=== PATIENT | female | born 1995 | race Caucasian/White ===

== ENCOUNTER 2018-03-08 12:15 | Inpatient (IN) | payer BC, SELFPAY ==
[2016-02-16 12:01] VITALS: BMI 35.2
[2018-03-08] VITALS (15 sets, daily range): BP systolic 92–123; BP diastolic 1–74; PULSE 68–104; RESP 16–18; TEMP 35.8–37.2; O2SAT 96–100; BMI 36.8
[2018-03-08 11:40] LABS: ROM Internal Control Test YES-OK TO RESULT pt. (Internal QC)
[2018-03-08 12:08] LABS: ROM Patient Test POSITIVE (Negative)
[2018-03-08] MEDS: Lactated Ringers 1,000 ML 150 ML IV (13:25)
[2018-03-08 13:36] LABS: Absolute Lymphocyte Count 2.82 X10^3/ul (0.83-4.51); Absolute Neutrophil Count 7.9 X10^3/uL (2.0-7.7); Basophil# 0.02 X10^3/uL; Basophil% 0.2 % (0-1); Eosinophil# 0.16 X10^3/uL; Eosinophils% 1.4 % (0-5); Hematocrit 35.1 % (37-47); Hemoglobin 11.7 g/dl (12.0-15.0); Lymphocyte # 2.82 X10^3/ul (4.0); Lymphocyte % 24.4 % (19-41); Mean Corp Hgb Conc 33.3 g/gl (32-36); Mean Corpuscular Hgb 29.8 pg (27.0-32.0); Mean Corpuscular Volume 89.5 fL (81-99); Monocyte# 0.57 X10^3/uL; Monocyte% 4.9 % (0-10); Neutrophil # 7.93 X10^3/uL (2.7-7.7); Neutrophil % 68.8 % (47-70); Platelet Count 208 K/mm3 (150-450); RBC Distribution Width CV 12.6 % (11.6-14.6); RBC Distribution Width SD 40.2 fl (35.1-43.9); Red Blood Count 3.92 M/mm3 (4.2-5.4); White Blood Count 11.5 K/mm3 (4.4-11.0)
[2018-03-08 13:37] LABS: POSITIVE COUNT NO; POSITIVE DIFFERENTIAL NO; POSITIVE MORPHOLOGY NO
[2018-03-08] MEDS: Sodium Citrate/Citric Acid 30 ML UDC PO (14:48)
[2018-03-08] MEDS: Cefazolin 2 GM in 0.9% Normal Saline 100 ML IV (14:50)
[2018-03-08] MEDS: Lactated Ringers 1,000 ML 999 ML IV (14:51)
[2018-03-08] MEDS: Oxytocin 30 units/NS 500 ml 30 UNITS/500 ML IV.SOLN 167 UNITS IV (15:24)
--- NOTE | 2018-03-08 15:50 | PCM.HP.OB ---
History Date of Admission: 03/08/18 Final TERESA: 03/06/18 Final TERESA Source: LMP Gestational age: 40 Weeks and 2 Days History of this : This is a 22 year-old, at 40.2 weeks gestational age c/o SROM at 7am on 03/08/18. Allergies benzocaine Allergy (Verified 03/08/18 11:23) Swelling Home Medications: Home Medications Vits [Prenatabs FA ] 1 tablet PO DAILY 02/14/16 Smoking Status: Never smoker Alcohol: None Number of Fetus(es): 1 History Past Pregnancies: Past Pregnancies Delivery Date Name GA/Weeks Outcome Route Weight Infant Gender Labor Length Anesthesia Delivery Location Provider FOB Labs: A+, HIV neg, HEP B neg, rub imm, Syphilis neg Expected Infant Delivery Method: Spontaneous Vaginal Review of Systems Constitutional: Denies: Anorexia Cardiovascular: Denies: Chest Pain Gastrointestinal: Denies: Abdominal Pain Physical Exam General: Alert, Oriented x3 Abdomen: Soft, Non Tender, Gravid Neurological: Cranial nerves II-XII grossly intact CODING SUPPORT SPECIALIST: Normal external genitalia Estimated gestational size: Appropriate for gestational size Presentation: Cephalic Cervix Dilation (cm): 0 Station: -3 Effacement (%): 0 Assessment/Plan This is a 22 year-old, G 2P1 at 40.2 weeks gestational age- SROM at home- remote from delivery- Previous C/S 1) discussed with patient that at this time she is not in labor, cervix is not favorable and IOL could be prolonged - with h/o chorioamnionitis i recommend Repeat c/s at this- I counseled patient and who agreed to proceed 2) Repeat cs today 3) PRe OP ANCEF ordered 4) OR team notified
--- NOTE | 2018-03-08 15:55 | HP.PCM_ITS ---
History Date of Admission: 03/08/18 Final TERESA: 03/06/18 Final TERESA Source: LMP Gestational age: 40 Weeks and 2 Days History of this : This is a 22 year-old, at 40.2 weeks gestational age c/o SROM at 7am on 03/08/18. Allergies benzocaine Allergy (Verified 03/08/18 11:23) Swelling Home Medications: Home Medications Vits [Prenatabs FA ] 1 tablet PO DAILY 02/14/16 Smoking Status: Never smoker Alcohol: None Number of Fetus(es): 1 History Past Pregnancies: Past Pregnancies Delivery Date Name GA/Weeks Outcome Route Weight Infant Gender Labor Length Anesthesia Delivery Location Provider FOB Labs: A+, HIV neg, HEP B neg, rub imm, Syphilis neg Expected Infant Delivery Method: Spontaneous Vaginal Review of Systems Constitutional: Denies: Anorexia Cardiovascular: Denies: Chest Pain Gastrointestinal: Denies: Abdominal Pain Physical Exam General: Alert, Oriented x3 Abdomen: Soft, Non Tender, Gravid Neurological: Cranial nerves II-XII grossly intact SUBSTATION INSPECTOR: Normal external genitalia Estimated gestational size: Appropriate for gestational size Presentation: Cephalic Cervix Dilation (cm): 0 Station: -3 Effacement (%): 0 Assessment/Plan This is a 22 year-old, G 2P1 at 40.2 weeks gestational age- SROM at home- remote from delivery- Previous C/S 1) discussed with patient that at this time she is not in labor, cervix is not favorable and IOL could be prolonged - with h/o chorioamnionitis i recommend Repeat c/s at this- I counseled patient and who agreed to proceed 2) Repeat cs today 3) PRe OP ANCEF ordered 4) OR team notified
--- NOTE | 2018-03-08 15:59 | PCM.IMED.CSR ---
A-[id number]-Kjzjgz[facility] PostOp Date of Procedure: 03/08/18 Primary Surgeon/Physician: Radha Kirk MD supervisor packing room: Carrillo Bergman Pre-op Diagnosis: Repeat Elective , - - PROM - not in labor remote from delivery Post-Op Diagnosis: Repeat Elective , - - PROM, Not in labor remote from delivery Surgery/Procedure Performed: Repeat low transverse Section Description of Surgical Findings:: After informed consent was obtained the patient was taken to the operating room she was given spinal anesthesia. sHe was placed in the supine position. She was then prepped and draped in normal sterile fashion. Once spinal anesthesia was found to be adequate skin incision was made with a scalpel in a Pfannenstiel fashion. It was carried down to the underlying layer of the fascia. Fascia was then incised midline with scapel and extended laterally using curved reyna. 2 straight Lester's were placed in the superior aspect of the fascial edge and the rectus muscles were dissected off sharply. Attention was then turned to the inferior aspect where again the fascial edge was grasped with 2 straight Cassy clamps tented up and the rectus muscle dissected off sharply. At this time the rectus muscles were grasped in the midline using 2 Allis clamps and scalpel was used to separate the rectus muscles. Using blunt force the peritoneum was then entered. Metzenbaums were used to take down the rectus muscles inferiorly as well as the peritoneum. At this time the vesicouterine peritoneum was identified. Metzenbaum scissors were used to create a bladder flap and then taken down digitally. Uterine incision was made in a low transverse fashion with the scalpel and then entered bluntly. Gentle opposing traction was placed to extend the uterine incision. The membranes were ruptured amniotic fluid meconium stained. Infant's head was then brought to the uterine incision was delivered atraumatically followed by the rest infant's body. At this time delayed cord clamping was performed mouth nose were suctioned. Infant was then handed to the waiting nursery team. The placenta was then removed with gentle traction. The uterus was removed from the intra-abdominal cavity is wrapped in a moist lap. He was cleared of all clots and debris using a moist lap. Ring clamps were placed on the uterine angles. #1 Vicryl suture was used in a running locked fashion for the first layer. Multiple figure of eight sutures placed for hemostasis using #1 vicryl. At this time then the uterus was placed back into abdominal cavity uterine incision was evaluated and noted to be of good hemostasis. Great hemostasis was appreciated at this time the uterine incision was again evaluated good hemostasis was appreciated. Guera placed. The peritoneum was grasped with Kellys. Peritoneum was reapproximated using #2 Vicryl suture in a running fashion. Muscle was then reapproximated using #2 Vicryl in an interrupted mattress suture fashion. The fascia was then reapproximated using #1 Vicryl in a running fashion. Subcutaneous layer was evaluated and Bovie was used for any small oozing that was noted per #2-0 plain gut suture was then used to reapproximate the subcutaneous layer - follow by guera. 4-0 Vicryl on a Dave needle was used to reapproximate the skin in a subcutaneous fashion. Dry sterile dressing was applied. Instrument lap needle count were correct ?2. Anticipated normal postoperative course for this patient. Estimated Blood Loss: 750 Specimens Removed: placenta Drain: Landry to straight drain Type of Anesthesia: Spinal - Admit VTE Documentation VTE Present on Admission: Yes VTE Mechan Device Prophylaxis: SCD's VTE Pharm Prophylaxis ordered?: Yes
[2018-03-08] MEDS: Lactated Ringers 1,000 ML 100 ML IV (16:00)
--- NOTE | 2018-03-08 16:03 | OP.PN_ITS ---
K-Fuprcmp-Wzjlzdrtj PostOp Date of Procedure: 03/08/18 Primary Surgeon/Physician: Radha Kirk MD vision mixer: Carrillo Bergman Pre-op Diagnosis: Repeat Elective , - - PROM - not in labor remote from delivery Post-Op Diagnosis: Repeat Elective , - - PROM, Not in labor remote from delivery Surgery/Procedure Performed: Repeat low transverse Section Description of Surgical Findings:: After informed consent was obtained the patient was taken to the operating room she was given spinal anesthesia. sHe was placed in the supine position. She was then prepped and draped in normal sterile fashion. Once spinal anesthesia was found to be adequate skin incision was made with a scalpel in a Pfannenstiel fashion. It was carried down to the underlying layer of the fascia. Fascia was then incised midline with scapel and extended laterally using curved reyna. 2 straight Richland's were placed in the superior aspect of the fascial edge and the rectus muscles were dissected off sharply. Attention was then turned to the inferior aspect where again the fascial edge was grasped with 2 straight Cassy clamps tented up and the rectus muscle dissected off sharply. At this time the rectus muscles were grasped in the midline using 2 Allis clamps and scalpel was used to separate the rectus muscles. Using blunt force the peritoneum was then entered. Metzenbaums were used to take down the rectus muscles inferiorly as well as the peritoneum. At this time the vesicouterine peritoneum was identified. Metzenbaum scissors were used to create a bladder flap and then taken down digitally. Uterine incision was made in a low transverse fashion with the scalpel and then entered bluntly. Gentle opposing traction was placed to extend the uterine incision. The membranes were ruptured amniotic fluid meconium stained. Infant's head was then brought to the uterine incision was delivered atraumatically followed by the rest infant's body. At this time del ayed cord clamping was performed mouth nose were suctioned. was then handed to the waiting nursery team. The placenta was then removed with gentle traction. The uterus was removed from the intra-abdominal cavity is wrapped in a moist lap. He was cleared of all clots and debris using a moist lap. Ring clamps were placed on the uterine angles. #1 Vicryl suture was used in a running locked fashion for the first layer. Multiple figure of eight sutures placed for hemostasis using #1 vicryl. At this time then the uterus was placed back into abdominal cavity uterine incision was evaluated and noted to be of good hemostasis. Great hemostasis was appreciated at this time the uterine incision was again evaluated good hemostasis was appreciated. Guera placed. The peritoneum was grasped with Kellys. Peritoneum was reapproximated using #2 Vicryl suture in a running fashion. Muscle was then reapproximated using #2 Vicryl in an interrupted mattress suture fashion. The fascia was then reapproximated using #1 Vicryl in a running fashion. Subcutaneous layer was evaluated and Bovie was used for any small oozing that was noted per #2-0 plain gut suture was then used to reapproximate the subcutaneous layer - follow by guera. 4-0 Vicryl on a Dave needle was used to reapproximate the skin in a subcutaneous fashion. Dry sterile dressing was applied. Instrument lap needle count were correct ?2. Anticipated normal postoperative course for this patient. Estimated Blood Loss: 750 Specimens Removed: placenta Drain: Landry to straight drain Type of Anesthesia: Spinal - Admit VTE Documentation VTE Present on Admission: Yes VTE Mechan Device Prophylaxis: SCD's VTE Pharm Prophylaxis ordered?: Yes
[2018-03-08] MEDS: Ketorolac 30 MG/ML Syringe IV (18:21)
[2018-03-09] VITALS (12 sets, daily range): BP systolic 104–129; BP diastolic 54–75; PULSE 71–91; RESP 16–18; TEMP 35.9–36.6; O2SAT 98–100
[2018-03-09] MEDS: 0.9% Saline Lock 10 ML Syringe IV ×3 (00:06→18:28)
[2018-03-09] MEDS: Ketorolac 30 MG/ML Syringe IV ×4 (00:06→18:27)
[2018-03-09] MEDS: Lactated Ringers 1,000 ML 100 ML IV (02:34)
[2018-03-09 05:17] LABS: Hemoglobin 9.5 g/dl (12.0-15.0); Mean Corp Hgb Conc 33.9 g/gl (32-36); Mean Corpuscular Hgb 30.7 pg (27.0-32.0); Mean Corpuscular Volume 90.6 fL (81-99); Mean Platelet Vol. 10.5 fl (6.2-12.0); Platelet Count 156 K/mm3 (150-450); RBC Distribution Width CV 12.3 % (11.6-14.6); RBC Distribution Width SD 38.9 fl (35.1-43.9); Red Blood Count 3.09 M/mm3 (4.2-5.4); White Blood Count 11.5 K/mm3 (4.4-11.0)
[2018-03-09 05:18] LABS: Scan Indicated on CBC? Y/N NO
[2018-03-09] MEDS: Enoxaparin 40 MG/0.4 ML Syringe SC (06:04)
--- NOTE | 2018-03-09 08:06 | PN.OBGYN_ITS ---
Subjective: pt seen at bedside, doing well. pt reports good pain control. naranjo in place. passing flatus. breast feeding. - Physical Exam General: Alert, Oriented x3 Abdomen: Soft, Non-Distended, - - fundus firm. incision site dry and intact Extremities: No Calf Tenderness Vital Signs Temp Pulse Resp BP Pulse Ox 98.5 F 76 18 112/63 98 03/08/18 23:05 03/09/18 06:08 03/09/18 06:08 03/09/18 04:51 03/09/18 06:08 Oxygen Delivery Method Room Air Weight: 91.3 kg Body Mass Index (BMI) 36.8 Intake and Output for Last 24 Hours 03/07/18 03/08/18 03/09/18 23:59 23:59 23:59 Intake Total 833 / 833 1100 / 1100 Output Total 550 / 550 800 / 800 Balance 283 / 283 300 / 300 Laboratory Tests Past 24 Hrs 03/08/18 03/08/18 03/08/18 11:30 13:25 13:25 WBC 11.5 H RBC 3.92 L Hgb 11.7 L Hct 35.1 L MCV 89.5 MCH 29.8 MCHC 33.3 RDW 12.6 RDW Differential 40.2 Plt Count 208 MPV 10.0 Immature Gran % (Auto) 0.300 Neut % (Auto) 68.8 Lymph % (Auto) 24.4 [place] % (Auto) 4.9 Eos % (Auto) 1.4 Baso % (Auto) 0.2 Absolute Neuts (auto) 7.9 H Absolute Lymphs (auto) 2.82 Total Counted Not Reportable Vag Amniotic Fld Detect POSITIVE H Blood Type A POSITIVE Antibody Screen NEGATIVE 03/09/18 04:55 WBC 11.5 H RBC 3.09 L Hgb 9.5 L Hct 28.0 L MCV 90.6 MCH 30.7 MCHC 33.9 RDW 12.3 RDW Differential 38.9 Plt Count 156 MPV 10.5 Immature Gran % (Auto) Neut % (Auto) Lymph % (Auto) [place] % (Auto) Eos % (Auto) Baso % (Auto) Absolute Neuts (auto) Absolute Lymphs (auto) Total Counted Vag Amniotic Fld Detect Blood Type Antibody Screen Medical Necessity - Tobacco Use Smoking Status: Never smoker Assessment/Plan POD#1, doing well routine care pain mgmt dc naranjo ambulation
[2018-03-09] MEDS: oxyCODONE 5 MG Tablet PO (20:47)
[2018-03-10] MEDS: Ketorolac 30 MG/ML Syringe IV ×3 (00:01→11:12)
[2018-03-10] MEDS: 0.9% Saline Lock 10 ML Syringe IV ×3 (00:01→11:13)
[2018-03-10 02:30] VITALS: BP 121/71; PULSE 100; RESP 16; TEMP 36.6; O2SAT 98
[2018-03-10] MEDS: Enoxaparin 40 MG/0.4 ML Syringe SC (06:11)
--- NOTE | 2018-03-10 08:12 | PCM.PN.OB ---
Subjective: pt seen at bedside, doing well. pt reports good pain control. lochia mild. Pt reports mild nausea. passing flatus. breast feeding well. - Physical Exam General: Alert, Oriented x3 Abdomen: Soft, Non-Distended, - - fundus firm Extremities: No Calf Tenderness Vital Signs Temp Pulse Resp BP Pulse Ox 97.8 F 100 16 121/71 H 98 03/10/18 02:30 03/10/18 02:30 03/10/18 02:30 03/10/18 02:30 03/10/18 02:30 Oxygen Delivery Method Room Air Weight: 91.3 kg Body Mass Index (BMI) 36.8 Intake and Output for Last 24 Hours 03/08/18 03/09/18 03/10/18 23:59 23:59 23:59 Intake Total 833 / 833 1700 / 1700 Output Total 550 / 550 2300 / 2300 Balance 283 / 283 -600 / -600 Medical Necessity - Tobacco Use Smoking Status: Never smoker Assessment/Plan POD#2, doing well routine care pain mgmt ambulation zofran or phenergan for nausea
--- NOTE | 2018-03-10 08:16 | DCINST_ITS ---
Discharge Diet: No Restrictions Discharge Activity: Return to Normal Activity, May Not Drive - for 2 weeks, May not drive while taking narcotic pain medications., May Shower, May Take a Tub Bath - in 7 days. May resume sexual activity in: 4-6 weeks Lifting Restrictions: 20 pounds Additional Activity Instructions:: Nothing in the vagina for 4-6 weeks. You may return to work/school in 6 weeks. Call your doctor if your incision/area has: Continuous Slow Oozing, Sudden Increased Bleeding, Increased Pain/ Swelling, Increased Redness, Foul Smelling Discharge Call your doctor if you observe: Fever of 101 or Higher, Using more than one pad per hour - for 2 hours Suture Line Care: Avoid Pulling/Pushing, Avoid Pinching/Bending Cleanse incision/area with: Keep Dressing Clean & Dry Additional Instructions: If you experience any of the following, contact your healthcare provider. * Bleeding that soaks a pad every hour for 2 hours * Fever 100.4 or higher * Unrelieved incision or abdominal pain * Swelling, redness, discharge or bleeding from your incision or episiotomy site * Your incision begins to separate * Problems urinating (including inability to urinate or burning while urinating). * Visual changes * Severe headache * Flu-like symptoms * Pain or redness in one of both of your breasts * Pain, warmth, tenderness or swelling in your legs, especially the calf area * Frequent nausea and vomiting * Symptoms of depression or anxiety If you experience any of the following, call 911 or go to the nearest Emergency Room. * Chest pain * Problems breathing * Seizure activity * Partial or complete paralysis of a body part, slurred speech, weakness or drooping of the face, or a sudden inability to walk or hold your balance Allergies/Adverse Reactions: Allergies benzocaine Allergy (Verified 03/08/18 11:23) Swelling Medications to take at Discharge Vits [Prenatabs FA ] 1 tablet PO DAILY 02/14/16 Ibuprofen [Motrin] 600 mg PO Q6H PRN PRN #30 tablet 03/10/18 Oxycodone HCl/Acetaminophen [Percocet 5/325] 1 tablet PO Q6H PRN PRN 7 Days #28 tablet 03/10/18 Senna/Docusate Sodium [Senokot-S] 1 tab PO DAILY PRN #30 tablet 03/10/18 SimETHICONE [Mylicon] 80 mg PO PCHS PRN #30 tablet 03/10/18 The following prescriptions were given: Ibuprofen [Motrin] 600 mg PO Q6H PRN PRN #30 tablet PRN Reason: Mild Pain (-05/01) Oxycodone HCl/Acetaminophen [Percocet 5/325] 1 tablet PO Q6H PRN PRN 7 Days #28 tablet PRN Reason: Pain Senna/Docusate Sodium [Senokot-S] 1 tab PO DAILY PRN #30 tablet PRN Reason: Constipation SimETHICONE [Mylicon] 80 mg PO PCHS PRN #30 tablet PRN Reason: Indigestion/stomach pain Follow-Up: Call to make an appointment with your doctor for an incision check in 1-2 weeks. You will also need a 6 week post- follow up appointment. Test results from this visit will be discussed in further detail at your follow- up appointment, if applicable. Please Follow Up With: Radha Kirk MD - Call to make an appointment for an incision check in 1-2 [phone] When: You will need a post- check in 6 weeks. Primary Care Physician: Emre Muhammad MD [Primary Care Provider] -
[2018-03-10 10:08] VITALS: BP 133/84; PULSE 82; RESP 18; TEMP 36.6; O2SAT 98
[2018-03-10 12:32] VITALS: BP 124/80; PULSE 82; RESP 18; TEMP 36.2; O2SAT 98
[2018-03-10] MEDS: Ondansetron ODT 4 MG Tablet PO ×2 (13:37→22:10)
[2018-03-10] MEDS: oxyCODONE 5 MG Tablet PO ×2 (16:04→22:10)
[2018-03-10 20:10] VITALS: BP 125/84; PULSE 89; RESP 16; TEMP 36.8; O2SAT 99
--- NOTE | 2018-03-10 22:23 | NURSING ---
One 5mg tab of oxyir and one 4mg tab of zofran dropped on floor. Tabs placed in pharmaceutical waste container. Waste witnessed with second RN.
[2018-03-11 02:20] VITALS: BP 125/79; PULSE 82; RESP 16; TEMP 36.3; O2SAT 98
[2018-03-11] MEDS: oxyCODONE 5 MG Tablet PO ×2 (05:55→10:48)
[2018-03-11] MEDS: Enoxaparin 40 MG/0.4 ML Syringe SC (05:56)
--- NOTE | 2018-03-11 08:01 | PCM.PN.OB ---
Subjective: pt seen up at bedside, doing well. pt reports good pain control- improvement in nausea. Lochia mild, passing flatus, voiding w/o difficulty. - Physical Exam General: Alert, Oriented x3 Abdomen: Soft, Non-Distended, - - fundus firm. incision dressing dry and intact Extremities: No Calf Tenderness Vital Signs Temp Pulse Resp BP Pulse Ox 97.3 F L 82 16 125/79 H 98 03/11/18 02:20 03/11/18 02:20 03/11/18 02:20 03/11/18 02:20 03/11/18 02:20 Oxygen Delivery Method Room Air Weight: 91.3 kg Body Mass Index (BMI) 36.8 Intake and Output for Last 24 Hours 03/09/03/10/03/11/18 23:59 23:59 23:59 Intake Total 1700 / 1700 Output Total 2300 / 2300 Balance -600 / -600 Medical Necessity - Tobacco Use Smoking Status: Never smoker Assessment/Plan POD#3, doing well routine care pain mgmt dc home
--- NOTE | 2018-03-11 08:03 | PCM.DC.BLA ---
Discharge Summary Date of Admission: 03/08/18 Date of Discharge: 03/11/18 Summary: She was admitted to [facility] on 03/08/2018 with spontaneous rupture membranes at home not in labor remote from delivery at term gestation. Patient was counseled on repeat section versus induction of labor. However patient is a previous section and I feel at this point is not a good candidate for a TOLAC as she is not in labor and she has been ruptured since 7 AM on 03/08/2018.spontaneous labor. She agreed and proceeded with a repeat low transverse section under spinal anesthesia. Patient had an uncomplicated postoperative course and was discharged home on postoperative day #3 on 03/11/2018. - Physical Exam Vital Signs Temp Pulse Resp BP Pulse Ox 97.3 F L 82 16 125/79 H 98 03/11/18 02:20 03/11/18 02:20 03/11/18 02:20 03/11/18 02:20 03/11/18 02:20 Oxygen Delivery Method Room Air Weight: 91.3 kg Body Mass Index (BMI) 36.8 Intake and Output for Last 24 Hours 03/09/18 03/10/18 03/11/18 23:59 23:59 23:59 Intake Total 1700 / 1700 Output Total 2300 / 2300 Balance -600 / -600
[2018-03-11 09:35] VITALS: BP 120/72; PULSE 80; RESP 18; TEMP 36.2
[2018-03-11] MEDS: Ibuprofen 600 MG Tablet PO (13:58)
[2018-03-11] MEDS: Ondansetron ODT 4 MG Tablet PO (13:59)
[2018-03-11 15:07] VITALS: BP 125/80; PULSE 90; RESP 18; TEMP 36.6
--- NOTE | 2018-03-21 12:20 | NURSING ---
[id number] Follow up phone call made and left a message and encouraged Mom to call if any concerns or questions. Chasity BOYKIN IBCLC
== END 2018-03-11 15:05 | disposition home or self-care (01) | DRG 788 ==
LOC: WPOUT 12:21
PROVIDERS: Admitting Provider Obstetrics & Gynecology; Family Provider Family Medicine; PCP Family Medicine; Referring Provider Obstetrics & Gynecology; Visit Provider Obstetrics & Gynecology
DX: O34.211 Maternal care for low transverse scar from previous cesarean delivery (principal); N85.8 Other specified noninflammatory disorders of uterus; Z3A.40 40 weeks gestation of pregnancy; Z37.0 Single live birth; O42.92 Full-term premature rupture of membranes, unspecified as to length of time between rupture and onset of labor
CPT/HCPCS: 59050; 84112; 85025; 85027; 86850; 86900; 99218; J7120; A4216; G0378

== ENCOUNTER 2019-02-23 11:42 | Emergency (ER) | payer MEDICAID, SELFPAY ==
[2018-03-08 11:21] VITALS: BMI 36.8
[2019-02-23 11:43] VITALS: BP 123/68; PULSE 82; RESP 17; TEMP 37.1; O2SAT 99; BMI 31.8
--- NOTE | 2019-02-23 13:10 | CT_ITS ---
STUDY: CT ABDOMEN AND PELVIS WITH CONTRAST REASON FOR EXAM: Female, 23 years old. ABD PAIN and amp; RECTAL BLEEDING X6 DAYS RADIATION DOSAGE (If Supplied By Facility): CTDIvol = ( 15.16 ) mGy, DLP = ( 956.02 ) mGycm TECHNIQUE: Transaxial images were obtained from the dome of the diaphragm to the symphysis pubis without oral contrast. IV 100mL Isovue-300 was administered. Sagittal and coronal images were reconstructed. Individualized dose optimization techniques were used for this CT. COMPARISON: None. FINDINGS: The visualized lung bases are unremarkable. The visualized portions of the heart are within normal limits. Normal liver. Normal gallbladder and extrahepatic biliary system. Normal spleen. Normal pancreas. Normal bilateral adrenal glands. Normal right kidney. Normal left kidney. Normal visualized stomach. Normal small intestine. Normal colon. There is non-visualization of the appendix. There is no free fluid. There is no free air. There are clustered, nonspecific, pericecal lymph nodes seen best on sequence 2, images 53 through 55. Normal abdominal aorta. Normal inferior vena cava. Normal retroperitoneum. Normal urinary bladder. There is a small fatty only umbilical hernia. No acute osseous abnormality. No suspicious lytic or blastic osseous finding. CT/Abdomen/Pelvis W IV Cont ONLY IMPRESSION: Small fatty only umbilical hernia. No evident obstruction. No free fluid. No free air. Nonspecific, subcentimeter clustered pericecal lymph nodes as above. Electronically Signed: Kaleb Ambrose MD at 15:45 EST , Service support ,
[2019-02-23 13:43] LABS: Color, Urine Yellow (Yellow); Glucose, Dipstick Normal (Normal); Ketone-Dipstick Negative (Negative); Leukocyte Esterase-Dipstick 500 /ul (Negative); Nitrite-Dipstick Negative (Negative); Occult Blood-Urine Negative /ul (Negative); Protein-Dipstick Negative (Negative); Urine Bilirubin Dipstick Negative (Negative); Urine Clarity Sl. Cloudy (Clear); Urine Urobilinogen Normal (Normal); Urine pH 6.5 (5.0 - 8.0)
[2019-02-23 13:44] LABS: Absolute Lymphocyte Count 1.88 X10^3/uL (0.83-4.51); Absolute Neutrophil Count 7.1 X10^3/uL (2.0-7.7); Basophil# 0.03 X10^3/uL; Basophil% 0.3 % (0-1); Eosinophil# 0.04 X10^3/uL; Eosinophils% 0.4 % (0-5); Hematocrit 40.2 % (37-47); Hemoglobin 14.1 g/dL (12.0-15.0); Lymphocyte # 1.88 X10^3/ul (4.0); Lymphocyte % 19.7 % (19-41); Mean Corp Hgb Conc 35.1 g/dL (32-36); Mean Corpuscular Hgb 30.7 pg (27.0-32.0); Mean Corpuscular Volume 87.4 fL (81-99); Mean Platelet Vol. 9.8 fl (6.2-12.0); Monocyte# 0.45 X10^3/uL; Monocyte% 4.7 % (0-10); NRBC Flagged by Analyzer 0 % (0-5); Neutrophil # 7.09 X10^3/uL (2.7-7.7); Neutrophil % 74.6 % (47-70); Platelet Count 198 K/mm3 (150-450); RBC Distribution Width CV 11.5 % (11.6-14.6); RBC Distribution Width SD 36.1 fl (35.1-43.9); White Blood Count 9.5 K/mm3 (4.4-11.0)
--- NOTE | 2019-02-23 13:46 | NURSING ---
CHEMISTRIES HEMOLIZED. LAB AWARE THEY NEED TO COME AND REDRAW
[2019-02-23 13:48] LABS: Internal QC Validated? YES +Cl - CLEAR BKGD; Pregnancy, Urine Negative Negative
[2019-02-23 13:52] LABS: Bacteria 1+ /hpf (None Seen); Mucous, Urine 1+ /hpf (<or=2+); Red Blood Cells-Urine 0-5 SEEN /hpf (0-5); Squamous Epithelial Cells - UA 0-5 SEEN /hpf (5-10); White Blood Cells 0-5 SEEN /hpf (0-5)
[2019-02-23 14:36] LABS: Anion Gap 5 (5-15); BUN 10 mg/dL (7-18); BUN/Creat Ratio 15.9 RATIO (10-20); Calcium,Total 8.5 mg/dL (8.5-10.1); Chloride 107 mmol/L (98-107); Creatinine, Serum 0.63 mg/dL (0.55-1.02); EST Glomerular Filtration Rate 124 mL/min (>60); Est Glom Filt Rate - Afr Amer 150 mL/min (>60); Estimated Creatinine Clearance 109.84 ml/min; Glucose 78 mg/dL (74-106); Potassium 3.8 mmol/L (3.5-5.1); Sodium Level 139 mmol/L (136-145)
[2019-02-23 15:00] VITALS: BP 99/70; PULSE 95; RESP 18; O2SAT 98
--- NOTE | 2019-02-23 16:57 | ED.VIS.GEN ---
History of Present Illness Chief Complaint: GI Bleed Informant: Patient, Family Narrative: Patient states that the past 7 days she has had blood in her stool. She has no history of the same. She has been feeling fatigued and bloated. She is never had a colonoscopy. She notes she has had a small amount of tenderness around the anus. She went to her PCP today and had a rectal exam that showed blood but no fissure no obvious hemorrhoids. She is not on any blood thinners. Family history of diverticulosis. No history of colitis. Past Medical History - Allergies and Home Meds Allergies/Adverse Reactions: Allergies benzocaine Allergy (Verified 02/23/19 11:43) Swelling Primary Care Physician: Emre Muhammad MD [Primary Care Provider] - Smoking Status: Never smoker Review of Systems General: Denies: Chills, Fever, Sweats Eyes: Denies: Visual changes - bilaterally, Diplopia ENT: Denies: Rhinorrhea, Sore throat Cardiovascular: Denies: Chest pain, Palpitations Respiratory: Denies: Dyspnea, Cough, Dyspnea on exertion Gastrointestinal: Reports: Hematochezia. Denies: Abdominal pain, Nausea, Vomiting, Diarrhea, Melena Genitourinary: Denies: Dysuria, Hematuria, Frequency Musculoskeletal: Denies: Back pain, Extremity Pain Skin: Denies: Rash, Wounds Neurological: Denies: Headache, Weakness, Numbness Physical Exam Vital Signs/Narrative: Vital Signs Pulse Resp BP Pulse Ox 02/23/19 15:00 95 18 99/70 98 Inital Vital Signs reviewed: Yes General: Well nourished, Well developed, No Acute Distress Head: Normocephalic, Atraumatic Eyes: Perrl, EOMI ENT: Moist mucous membranes, No rhinorrhea Neck: Supple, Nontender Cardiovascular: Regular rate, Regular rhythm, No murmurs Respiratory: No distress, CTA bilaterally, Chest nontender Abdomen: Soft, Nontender, Nondistended, Normal bowel sounds Back: Nontender, Normal Inspection Extremities: Nontender, No edema Skin: Normal color, No rash Neurological: Alert, Oriented x3, Cranial nerves II-XII grossly intact, Normal Strength, Normal Sensation Psychological: Normal affect, Normal Mood Diagnostic/Tx/Re-eval - Medical Decision Making Labs showed a stable hemoglobin. CT does not demonstrate any colitis or diverticulitis. As the patient has already had one rectal exam today I did not repeat it. I spoke again with her primary care physician after work-up. We can refer her to general surgery. We talked about possibilities of the bleeding such as AVM, internal hemorrhoids, diverticular disease and polyps, etc. We are going to trial some Proctofoam. Avoidance of sitting straining and as needed stool softener. ED Disposition - Plan for ED Patient: Disposition: Home or Assisted Living Instructions: RECTAL BLEED, Stable Prescriptions: Hydrocortisone/Pramoxine [Proctofoam-Hc Foam] 1 appful MS BID #1 canister Prescription Printed Referrals: Evangelina Hugo MD [STAFF PHYSICIAN] - As soon as possible
[2019-02-23 17:10] VITALS: RESP 18; O2SAT 100
== END 2019-02-23 17:10 | disposition home or self-care (01) ==
PROVIDERS: Emergency Provider Emergency Medicine; Family Provider Family Medicine; PCP Family Medicine
DX: K62.5 Hemorrhage of anus and rectum (principal); R53.83 Other fatigue; R14.0 Abdominal distension (gaseous)
CPT/HCPCS: 74177; 80048; 81001; 81025; 85025; 99284; Q9967; A4216

== ENCOUNTER 2020-11-28 07:35 | Outpatient (CLI) | payer OTHER, MEDICAID, SELFPAY ==
[2020-11-28 07:52] VITALS: TEMP 36.2
[2020-11-28 07:53] VITALS: BP 123/75; PULSE 94; O2SAT 98
[2020-11-28 08:34] VITALS: BMI 32.4
--- NOTE | 2020-11-28 19:30 | OB.TRI.NOTE ---
HPI - General HPI Narrative TEDDY RIOJAS, is a 25 F at 38.3 who presents to unit with decreased movement. She stated she has felt movement but very decreased starting earlier this morning. Denies any loss of fluid, vaginal bleeding or contractions. Maternal Data Information TERESA Calculator Estimated Delivery Date Method Current WG Current Estimate 12/09/20 Manual 38w 3d PFSH PFSH Home Medications Prenatabs FA 1 tab PO DAILY 02/14/16 [History Last Taken 02/15/16 one] ferrous sulfate [iron] 325 mg PO DAILY 11/28/20 [History Last Taken Unknown] Allergy/AdvReac Type Severity Reaction Status Date / Time benzocaine Allergy Swelling Verified 11/28/20 08:34 Social History Smoking Status: Never smoker History Elective abortions Hx Para 1 Spontaneous abortions Hx # Term Pregnancies Ectopic pregnancies Hx # Pregnancies Multiple births # of living children ROS Eyes Eyes: Denies blurry vision Cardiovascular Cardiovascular: Reports none; Denies chest pain at rest, chest pain with activity or dizziness Respiratory/Chest Respiratory/Chest: Denies cough or dyspnea Gastrointestinal Gastrointestinal: Reports none and other; Denies diarrhea or vomiting Genitourinary Genitourinary: Denies dysuria Musculoskeletal Musculoskeletal: Reports none Integumentary Integumentary: Reports none; Denies rash Neurologic Neurologic: Denies dizziness, headache(s) or other visual disturbances Psychiatric Psychiatric: Reports none Physical Exam Const alert and no apparent distress General Appearance: cooperative Orientation / Consciousness: awake Exam Limitations: no limitations HEENT normocephalic Eyes General Eye: normal appearance of both eyes Neck full ROM Chest inspection of chest normal Resp normal respiratory effort and normal air movement Effort and Inspection: symmetric chest movement Auscultation: clear to auscultation bilaterally Cardio regular rate GI soft to palpation, non-tender and non-distended Inspection: and other Back/Spine normal ROM Extremity full ROM, normal capillary refill and no calf tenderness Skin no rashes or lesions noted Neuro oriented x3 and CN's II-XII intact bilaterally Psych mental status grossly normal NST FHR Rate Baby A Baseline: 135 Variability:: Moderate Accelerations:: 15 x 15 Decelerations:: None NST Reactive:: Yes FHR Category:: Category I Uterine Activity:: irritability Assessment & Plan (1) 38 weeks gestation of : (2) Decreased movement: QUALIFIERS: Fetus number: single or unspecified fetus PLAN: Cat. 1 tracing- NST reactive Patient has felt movement since arrival to unit D/C home with follow up in office kick counts reviewed
== END 2020-11-28 09:00 | disposition home or self-care (01) ==
LOC: WPOUT 07:45 → WP 07:45
PROVIDERS: PCP Family Medicine; Referring Provider Advanced Practice Midwife; Visit Provider Advanced Practice Midwife
DX: O36.8130 Decreased fetal movements, third trimester, not applicable or unspecified (principal); Z3A.38 38 weeks gestation of pregnancy
CPT/HCPCS: 59025; 59050; 99218; G0378

== ENCOUNTER 2020-12-02 09:35 | Inpatient (IN) | payer OTHER, MEDICAID, SELFPAY ==
--- NOTE | 2020-11-27 16:20 | PCM.HP.BLA ---
History and Physical Date of Admission: 12/02/20 Expand AllCollapse All Expand All by Default Hide copied text Pantera for details Pre-Op History and Physical ? HPI: The patient is a 25 year old female presenting for pre-operative visit. She is scheduled for , for repeat elective cs on 12/02/20. Procedure discussed along with risks, benefits and complications. Other alternatives discussed for management. Consent form signed? Yes. ? ? PAST MEDICAL HISTORY PAST MEDICAL HISTORY Diagnosis Date ? Anemia during in second trimester 09/19/2020 ? Bilateral ovarian cysts ? ? 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 depression ? ? TMJ disease ? ? Orthodontia ? Vitamin D deficiency ? ? ? PAST SURGICAL HISTORY PAST SURGICAL HISTORY Procedure Laterality Date ? DELIVERY ONLY N/A 02/17/2016 ? DELIVERY ONLY ? 03/08/2018 ? RC/S low transverse ? ? ? CURRENT MEDICATIONS Current Outpatient Medications Medication Sig Dispense Refill ? calcium carbonate (TUMS ORAL) Take by mouth. ? ? ? ferrous sulfate (IRON ORAL) Take by mouth. ? ? ? cholecalciferol, vitamin D3, (VITAMIN D3 ORAL) Take by mouth. ? ? ? OTC NUTRITIONAL SUPPLEMENT once daily. Daily Energy tablet, Pt takes 2 tablets daily ? ? ? Paigyfbc-Fe-Ral-Fe-FA ( VITAMIN) tab Take 1 tablet by mouth. ? ? ? No current facility-administered medications for this visit. ? ? ALLERGIES: Benzocaine ? PERSONAL HISTORY: SOCIAL HISTORY Social History ? Tobacco Use ? Smoking status: Never Smoker ? Smokeless tobacco: Never Used Vaping Use ? Vaping Use: Never used Substance Use Topics ? Alcohol use: No ? Drug use: No ? FAMILY HISTORY: FAMILY HISTORY FAMILY HISTORY Problem Relation Age of Onset ? Diabetes Mother ? ? Asthma Mother ? ? Cancer Mother ? ? Uterine ? Heart Mother ? ? Arthritis Mother ? ? Rheumatoid ? other (PCOS) Mother ? ? other (Fibromyalgia) Mother ? ? other (Gastroparesis) Mother ? ? Diabetes Father ? ? Hypertension Father ? ? No Known Problems Brother ? ? Diabetes Maternal Grandmother ? ? Heart Maternal Grandmother ? ? Hypertension Maternal Grandmother ? ? other (anemia) Maternal Grandmother ? ? Cancer Maternal Grandfather ? ? Mesothelioma ? Coronary Artery Disease Maternal Grandfather ? ? Arthritis Maternal Grandfather ? ? Hypertension Maternal Grandfather ? ? Hypertension Paternal Grandmother ? ? Diabetes Paternal Grandmother ? ? Heart Paternal Grandfather ? ? Fatal AK ? Asthma Paternal Uncle ? ? other (Fibromyalgia) Paternal Aunt ? ? both paternal aunts ? other (PCOS) Maternal Aunt ? ? Diabetes Maternal Uncle ? ? Diabetes Maternal Uncle ? ? Heart Maternal Uncle ? ? Heart Maternal Uncle ? ? Macular Degen Maternal Uncle ? ? Heart Maternal Uncle ? ? Arthritis Maternal Uncle ? ? Maternal side ? No Known Problems Son ? ? No Known Problems Daughter ? ? ? REVIEW OF SYMPTOMS: negative except as noted above PHYSICAL EXAMINATION: ? VITALS: Blood pressure 118/66, weight 181 lb (82.1 kg), last menstrual period 03/04/2020. ? GENERAL: The patient is well nourished, well hydrated in no acute distress. , The patient is oriented to time, place, and person. NECK: full range of motion ABD: soft, gravid, non tender. ? IMPRESSION: @ 38.2 weeks, EDC 12/09/20 ? PLAN: Repeat elective cs at 39 weeks scheduled ? Pt has been counseled on risks/benefits and alternatives of surgery including but not limited to anesthesia, bleeding, infection, injury to pelvic structures including bowel, bladder, ureters and vessels. Pt wishes to proceed with surgery at this time. ? Pre op covid testing reviewed PRE and post op instructions reviewed ? I have reviewed and updated past medical and surgical history, medications and allergies Radha Garcia MD Routine Office Visit on 11/27/2020 Routine Office Visit on 11/27/2020 Note shared with patient
[2020-12-02] VITALS (16 sets, daily range): BP systolic 96–130; BP diastolic 55–85; PULSE 70–101; RESP 14–18; TEMP 36.1–36.7; O2SAT 97–98; BMI 33.8
[2020-12-02] MEDS: Acetaminophen 500 MG Tablet 1000 MG PO ×3 (10:01→22:00)
[2020-12-02] MEDS: Lactated Ringers 1,000 ML 999 ML IV (10:12)
[2020-12-02 10:19] LABS: Absolute Lymphocyte Count 2.64 X10^3/uL (0.83-4.51); Absolute Neutrophil Count 7.8 X10^3/uL (2.0-7.7); Basophil# 0.04 X10^3/uL; Basophil% 0.3 % (0-1); Eosinophil# 0.21 X10^3/uL; Eosinophils% 1.8 % (0-5); Hematocrit 33.5 % (37-47); Hemoglobin 11.5 g/dL (12.0-15.0); Lymphocyte # 2.64 X10^3/ul (0.83-4.51); Mean Corp Hgb Conc 34.3 g/dL (32-36); Mean Corpuscular Hgb 32.4 pg (27.0-32.0); Mean Corpuscular Volume 94.4 fL (81-99); Mean Platelet Vol. 10.4 fl (6.2-12.0); Monocyte# 0.68 X10^3/uL; Monocyte% 5.9 % (0-10); NRBC Flagged by Analyzer 0 % (0-5); Neutrophil # 7.78 X10^3/uL (2.7-7.7); Neutrophil % 67.9 % (47-70); Platelet Count 219 K/mm3 (150-450); RBC Distribution Width CV 11.9 % (11.6-14.6); RBC Distribution Width SD 41.1 fl (35.1-43.9); Red Blood Count 3.55 M/mm3 (4.2-5.4); White Blood Count 11.5 K/mm3 (4.4-11.0)
[2020-12-02] MEDS: Lactated Ringers 1,000 ML 150 ML IV (11:10)
[2020-12-02] MEDS: Sodium Citrate/Citric Acid 30 ML UDC PO (11:46)
[2020-12-02] MEDS: Cefazolin 2 GM in 0.9% Normal Saline 100 ML IV (11:46)
--- NOTE | 2020-12-02 12:31 | OP.PCM_ITS ---
Assessment & Plan (1) Previous section: (2) Delivery by section: Maternal Data Information TERESA Calculator Estimated Delivery Date Method Current WG Current Estimate 12/09/20 Manual 39w 0d Details Operative Information Date of Procedure: 12/02/20 Pre-Operative Diagnosis: 39 weeks gestation, previous cs Post-Operative Diagnosis: same, live female Indications for : Repeat Elective pharmacy general manager #1: Anusha De Leon Type of Anesthesia: Spinal Anesthesiologist: [place] Antibiotic Given: Ancef 2 grams IV x1 Drain: Landry to straight drain Estimated Blood Loss: 600 Fluids Replaced: 800 Procedure Start Time: 12:09 Procedure Stop Time: 12:35 Time of Delivery: 12:12 Findings Description of Procedure: After informed consent was obtained the patient was taken the operating room she was given spinal anesthesia. She was then placed in the supine position. She was prepped and draped in the normal sterile fashion. Anesthesia was found to be adequate. At this time a Pfannenstiel skin incision was made with a knife was carried down to the underlying layer of the fascia. The fascial incision was then extended laterally using curved Alvarado scissor. attention was then turned to the superior aspect of the fascial edge was grasped with 2 straight Cassy clamps tented up and the rectus muscle dissected off sharply using curved Alvarado scissor. Attention was then turned to the inferior aspect where again Cassy clamps were placed in the rectus muscles were tented up and the fascia was dissected off sharply using the curved Alvarado scissor. Rectus muscles were then in the midline bluntly and peritoneum was entered bluntly. Gentle opposing traction was placed. At this time the vesicouterine peritoneum was identified. Minimal adhesions noted. Scalpel was used to make a uterine incision in a low transverse fashion. The uterus was then entered bluntly gentle opposing traction was placed to extend this incision. Membranes were ruptured clear. Infant's head was brought to the uterine incision was delivered atraumatically. Delayed cord clamping. Mouth and nose suctioned. Cord was clamped and cut was handed to the waiting nursery team. The Placenta was removed from the uterus. The uterus was then removed from the abdominal cavity. The uterus was cleared of all clots and debris using a lap. At this time the uterine incision was reapproximated using #1 Vicryl in a running locked fashion follwed by a second imbricating layer with 1-o vicryl. Hemostasis was appreciated. Posterior cul-de-sac was then cleared of all clots and debris. Uterus was placed back in the abdominal cavity. Gutters were cleared of all clots and debris. Uterine incision was reevaluated and noted to be of excellent hemostasis. At this time the peritoneum and muscle were grasped with Kellys reapproximated using #2 Vicryl suture in a running fashion. Fascia was then reapproximated using #1 Vicryl in a running fashion. Subcu layer was reapproximated with #2 0 plain gut suture in an interrupted fashion. Subcu layer was closed using 4-0 vicryl on a Dave needle in a subcu fashion. Dry sterile dressing was applied. Instrument lap needle count correct ?2. Anticipated normal postoperative course. Presentation: Positive for Vertex Amniotic Membrane Rupture Type: Artificial Amniotic Fluid Description: Clear Placental Delivery Description: Expressed Placenta Disposition: [facility] Specimen(s) Sent to Pathology: none Cord Vessel Description: 3 Vessels Cord Entanglement: None A Gender: Female (1 minute): 9 (5 minute): 9 Delayed Cord Clamping: Yes Complications Risks of Surgery Discussed w/Patient: Bleeding, Anesthesia Risks, Infection, Need for Future C-Sections and Injury to surrounding structure(s) including bowel and bladder Complications: none Admit VTE Documentation VTE Present on Admission: Yes VTE Mechan Device Prophylaxis: SCD's VTE Pharm Prophylaxis Ordered: No
[2020-12-02] MEDS: Oxytocin 30 units/NS 500 ml 30 UNITS/500 ML IV.SOLN 167 UNITS IV (12:59)
[2020-12-02] MEDS: Ketorolac 30 MG/ML Syringe IV ×2 (13:03→18:58)
[2020-12-02] MEDS: Lactated Ringers 1,000 ML 100 ML IV (15:58)
[2020-12-03] MEDS: 0.9% Saline Lock 10 ML Syringe IV (00:55)
[2020-12-03] MEDS: Ketorolac 30 MG/ML Syringe IV ×2 (00:55→06:23)
[2020-12-03 04:25] VITALS: BP 105/60; PULSE 70; RESP 18; TEMP 36.3; O2SAT 97
[2020-12-03] MEDS: Acetaminophen 500 MG Tablet 1000 MG PO ×4 (05:06→22:17)
[2020-12-03 05:44] LABS: Hematocrit 28.3 % (37-47); Hemoglobin 9.7 g/dL (12.0-15.0); Mean Corp Hgb Conc 34.3 g/dL (32-36); Mean Corpuscular Hgb 32.4 pg (27.0-32.0); Mean Corpuscular Volume 94.6 fL (81-99); Mean Platelet Vol. 10.6 fl (6.2-12.0); Platelet Count 268 K/mm3 (150-450); Red Blood Count 2.99 M/mm3 (4.2-5.4)
[2020-12-03 07:30] VITALS: BP 108/63; PULSE 69; RESP 16; TEMP 36.6; O2SAT 100
--- NOTE | 2020-12-03 10:11 | NURSING ---
pt up oob to try and void
[2020-12-03] MEDS: Senna/Docusate Sodium 1 Tablet PO (10:26)
[2020-12-03] MEDS: Ferrous Sulfate 325 MG Tablet PO (10:27)
[2020-12-03 11:15] VITALS: BP 111/69; PULSE 74; RESP 16; TEMP 36.8; O2SAT 98
--- NOTE | 2020-12-03 11:18 | NURSING ---
1045 pt unable to void- fundus 2 above and off to the right- bladder distended- phone call placed to office- dr silva ordered naranjo to be placed- naranjo inserted at 1100 with 1300 cc- fundus firm and now 1 below umbilicus
--- NOTE | 2020-12-03 11:29 | PCM.PN.OB ---
Subjective Subjective Pain controlled. She's had trouble with urinating but is feeling better now with naranjo. Objective Data Objective Data Vital Signs: Vital Signs Temp Pulse Resp BP Pulse Ox 98.2 F 74 16 111/69 98 12/03/20 11:15 12/03/20 11:15 12/03/20 11:15 12/03/20 11:15 12/03/20 11:15 Oxygen Delivery Method Room Air Weight: 185 lb Body Mass Index (BMI) 33.8 Intake & Output: Intake and Output for Last 24 Hours 12/01/20 12/02/20 12/03/20 23:59 23:59 23:59 Intake Total 3513.33 / 3513.33 Output Total 1050 / 1050 3250 / 3250 Balance 2463.33 / 2463.33 -3250 / -3250 Lab / Micro Data Result Diagrams: 12/03/20 05:35 Labs: Laboratory Results - last 24 hr 12/02/20 10:10: Blood Type A POSITIVE, Antibody Screen NEGATIVE 12/03/20 05:35: WBC 22.0 H, RBC 2.99 L, Hgb 9.7 L, Hct 28.3 L, MCV 94.6, MCH 32.4 H, MCHC 34.3, RDW Std Deviation 41.0, RDW Coeff of Melissa 12.0, Plt Count 268, MPV 10.6 Physical Exam Const alert, oriented x3 and no apparent distress HEENT normocephalic GI soft to palpation, non-tender and non-distended GI Narrative: fundus firm, mid & below umbilicus Incision - bandage c/d/i Extremity normal to inspection and no calf tenderness Assessment & Plan (1) Delivery by section: COMMENT: POD#1 PLAN: Heme - HDS. Hb = 9.7. Will start iron for acute blood loss anemia. ID - AF. WBC of 22. No symptoms infection. - naranjo replaced as patient unable to void. Good UOP. GI - ADAT Routine care
[2020-12-03] MEDS: Ibuprofen 600 MG Tablet PO ×2 (13:39→18:55)
--- NOTE | 2020-12-03 13:47 | NURSING ---
0193 pt encouraged again to get out of bed and walk; pt c/o gas pain in rt shoulder rating a 4/10; pt passing only a small amount of gas; risks explained to pt and family about possible complications if pt continues to remain in bed; pt agrees to get up and walk- significant other assisting pt
--- NOTE | 2020-12-03 15:33 | NURSING ---
1230 dr silva into see pt; marcella to remain in till tomorrow morning
--- NOTE | 2020-12-03 15:34 | NURSING ---
1400 pt up ambulating in [place] pt tolerated well; pt instructed to walk 2 more times tonight and pt encouraged when in bed to rest on her sides
[2020-12-03 16:43] VITALS: BP 113/57; PULSE 86; RESP 18; TEMP 36.4
--- NOTE | 2020-12-03 17:26 | NURSING ---
1645 pt into shower
--- NOTE | 2020-12-03 18:57 | NURSING ---
pt up walking in [place]
--- NOTE | 2020-12-03 18:59 | NURSING ---
pt to toilet to try and pass more gas; pt states that she has passed a small amount of gas today
[2020-12-03 20:30] VITALS: BP 118/68; PULSE 93; RESP 16; TEMP 36.8; O2SAT 99
[2020-12-04 02:50] VITALS: BP 115/65; PULSE 84; RESP 18; TEMP 36.4; O2SAT 97
[2020-12-04] MEDS: Ibuprofen 600 MG Tablet PO ×3 (03:09→15:54)
[2020-12-04] MEDS: Acetaminophen 500 MG Tablet 1000 MG PO ×3 (04:36→15:55)
[2020-12-04 09:08] VITALS: BP 120/70; PULSE 86; RESP 16; TEMP 36.2; O2SAT 98
--- NOTE | 2020-12-04 09:53 | PCM.PN.OB ---
Subjective Subjective Doing well per patient and nursing staff. Ambulating and taking PO without difficulty. Landry removed this am, has not urinated yet. Passing flatus. Pain controlled. , services for assistance. Denies headache, visual changes, chest pain, shortness of breath, leg pain or increased bleeding. Lochia normal. Objective Data Objective Data Vital Signs: Vital Signs Temp Pulse Resp BP Pulse Ox 97.2 F L 86 16 120/70 98 12/04/20 09:08 12/04/20 09:08 12/04/20 09:08 12/04/20 09:08 12/04/20 09:08 Oxygen Delivery Method Room Air Weight: 185 lb Body Mass Index (BMI) 33.8 Intake & Output: Intake and Output for Last 24 Hours 12/02/20 12/03/20 12/04/20 23:59 23:59 23:59 Intake Total 3513.33 / 3513.33 Output Total 1050 / 1050 4250 / 4250 1000 / 1000 Balance 2463.33 / 2463.33 -4250 / -4250 -1000 / -1000 Lab / Micro Data Result Diagrams: 12/03/20 05:35 ROS Constitutional Constitutional: Reports systems reviewed and no addt'l complaints, except as documented; Denies headache(s) Eyes Eyes: Denies acute decrease in peripheral vision, blurry vision or change in vision ENT HEENT: Reports systems reviewed and no addt'l complaints, except as documented Cardiovascular Cardiovascular: Denies chest pain or dizziness Respiratory/Chest Respiratory/Chest: Denies cough, dyspnea, dyspnea on exertion, shortness of breath at rest or shortness of breath with exertion Gastrointestinal Gastrointestinal: Denies abdominal pain, diarrhea, nausea or vomiting Genitourinary Genitourinary: Denies abdominal discomfort Musculoskeletal Musculoskeletal: Denies limited range of motion Integumentary Integumentary: Reports systems reviewed and no addt'l complaints, except as documented Neurologic Neurologic: Reports systems reviewed and no addt'l complaints, except as documented Psychiatric Psychiatric: Reports systems reviewed and no addt'l complaints, except as documented Endocrine Endocrinology: Reports systems reviewed and no addt'l complaints, except as documented Hematologic/Lymphatic Hematologic/Lymphatic: Reports systems reviewed and no addt'l complaints, except as documented Allergic/Immunologic Allergic/Immunologic: Reports systems reviewed and no addt'l complaints, except as documented Assessment & Plan (1) Delivery by section: COMMENT: POD#2 PLAN: 1) Routine PP and postoperative instructions 2) Increase hydration and attempt urination. If no urination, nursing to call. 3) VSS and labs stable 4) Follow up in one week for incision check and 6 week for PP visit 5) D/C home
--- NOTE | 2020-12-04 09:53 | PCM.DC.SUM ---
Providers Date of Admission: 12/02/20 Primary Care Physician: Dr. Emre Muhammad MD Reason For Visit: REPEAT C SECTION Diagnosis Discharge Diagnosis (1) Delivery by section: Status: Acute Medications at Discharge Home Medications Prenatabs FA 1 tab PO DAILY 02/14/16 ibuprofen 600 mg PO Q6H #30 tab 12/04/20 sennosides-docusate sodium [Stool Softener-Stimulant Laxat] 1 tab-cap PO DAILY #30 tab 12/04/20 Hospital Course Operations section Procedures None Summary of Care Provided Hospital Course: Presented on 12/02/20 for Repeat LTCS. Uncomplicated postoperative course. Discharge home on postoperative day 2 Weight / BMI Weight Weight: 185 lb Body Mass Index (BMI) 33.8 ABG / Lab / Microbiology Data Result Diagrams: 12/03/20 05:35 Meaningful Use Info Meaningful Use Diagnoses (Choose all that apply): None applicable Discharge Plan Admission Admit Date/Time: 12/02/20 09:35 Primary Reason for Your Visit: Repeat Section Attending Provider: Radha Kirk Primary Care Provider: Emre Muhammad Instructions Patient Instructions: After a Additional Instructions / Restrictions: Follow up in 1 week for incision check and 6 weeks for visit. Discharge Orders/Prescriptions Prescriptions: New sennosides-docusate sodium [Stool Softener-Stimulant Laxat] 8.6-50 mg Tablet 1 tab-cap PO DAILY Qty: 30 RF: 0 ibuprofen 600 mg Tablet 600 mg PO Q6H Qty: 30 RF: 0 Continued Prenatabs FA 1 TABLET tablet 1 tab PO DAILY RF: 0 Discontinued ferrous sulfate [iron] 325 mg (65 mg iron) Tablet 325 mg PO DAILY RF: 0 Referrals / Follow Up: Radha Kirk MD [STAFF PHYSICIAN] - Emre Muhammad MD [Primary Care Provider] - Disposition Disposition (needs filled in before D/C Order can be placed): Home, Self Care
[2020-12-04] MEDS: Senna/Docusate Sodium 1 Tablet PO (10:30)
[2020-12-04] MEDS: Ferrous Sulfate 325 MG Tablet PO (12:10)
[2020-12-04 13:47] VITALS: BP 130/84; PULSE 81; RESP 16; TEMP 36.6; O2SAT 96
[2020-12-04 16:00] VITALS: BP 111/54; PULSE 82; RESP 16; TEMP 36.4; O2SAT 99
== END 2020-12-04 18:10 | disposition home or self-care (01) | DRG 540 ==
PROVIDERS: Admitting Provider Obstetrics & Gynecology; PCP Family Medicine; Visit Provider Obstetrics & Gynecology
PROC: 10D00Z1 Extraction of Products of Conception, Low, Open Approach (ICD-10-PCS; CPT 59514; principal; 2020-12-02 11:45)
DX: O34.211 Maternal care for low transverse scar from previous cesarean delivery (principal); Z3A.39 39 weeks gestation of pregnancy; Z37.0 Single live birth; O99.02 Anemia complicating childbirth; Z79.899 Other long term (current) drug therapy
CPT/HCPCS: 85025; 85027; 86850; 86900; 86901; 99218; J7120; A4216; G0378; J2405

== ENCOUNTER → 2020-12-08 20:15 | Outpatient (CLI) | payer OTHER, MEDICAID, SELFPAY | PROVIDERS: PCP Family Medicine; Referring Provider Obstetrics & Gynecology; Visit Provider Obstetrics & Gynecology | DX: Z39.1 Encounter for care and examination of lactating mother (principal) | CPT/HCPCS: 96158 ==

== ENCOUNTER 2023-07-07 09:46 | Inpatient (IN) | payer MEDICAID, SELFPAY ==
--- NOTE | 2023-07-05 17:05 | HP.PCM.OB_ITS ---
History and Physical Date of Admission: 07/07/23 Pre-Op History and Physical HPI: The patient is a 27 year old female presenting for pre-operative visit. She is scheduled for , for repeat cs on . Procedure discussed along with risks, benefits and complications. Other alternatives discussed for management. Consent form signed? Yes. PAST MEDICAL HISTORY Diagnosis Date ? Anemia during in second trimester 09/19/2020 ? 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 depression ? TMJ disease Orthodontia ? Vitamin D deficiency PAST SURGICAL HISTORY Procedure Laterality Date ? DELIVERY ONLY N/A 02/17/2016 ? DELIVERY ONLY 03/08/2018 RC/S low transverse Current Outpatient Medications Medication Sig Dispense Refill ? ferrous sulfate (IRON) 325 mg (65 mg iron) tablet Take 325 mg by mouth. ? vitamin b complex capsule Take 1 capsule by mouth once daily. ? Ykydfpqs-Qj-Wgi-Fe-FA ( VITAMIN) tab Take 1 tablet by mouth. ? pseudoephed/acetaminophen/cpm (COLD MEDICINE ORAL) Take by mouth. ? Comp.Stocking,Thigh,Reg,Medium misc 2 Each once daily. Moderate compression 20-30mmhg 2 Each 0 No current facility-administered medications for this visit. ALLERGIES: Benzocaine PERSONAL HISTORY: Social History Tobacco Use ? Smoking status: Never ? Smokeless tobacco: Never Vaping Use ? Vaping Use: Never used Substance Use Topics ? Alcohol use: No ? Drug use: No FAMILY HISTORY: FAMILY HISTORY Problem Relation Age of Onset ? Diabetes Mother ? Asthma Mother ? Cancer Mother Uterine ? Heart Mother ? Arthritis Mother Rheumatoid ? other (PCOS) Mother ? other (Fibromyalgia) Mother ? other (Gastroparesis) Mother ? Diabetes Father ? Hypertension Father ? No Known Problems Brother ? Diabetes Maternal Grandmother ? Heart Maternal Grandmother ? Hypertension Maternal Grandmother ? other (anemia) Maternal Grandmother ? Cancer Maternal Grandfather Mesothelioma ? Coronary Artery Disease Maternal Grandfather ? Arthritis Maternal Grandfather ? Hypertension Maternal Grandfather ? Hypertension Paternal Grandmother ? Diabetes Paternal Grandmother ? Heart Paternal Grandfather Fatal MD ? Asthma Paternal Uncle ? other (Fibromyalgia) Paternal Aunt both paternal aunts ? other (PCOS) Maternal Aunt ? Diabetes Maternal Uncle ? Diabetes Maternal Uncle ? Heart Maternal Uncle ? Heart Maternal Uncle ? Macular Degen Maternal Uncle ? Heart Maternal Uncle ? Arthritis Maternal Uncle Maternal side ? No Known Problems Son ? No Known Problems Daughter REVIEW OF SYMPTOMS: negative except as noted above PHYSICAL EXAMINATION: VITALS: Blood pressure 108/68, weight 187 lb (84.8 kg), last menstrual period 10/05/2022, currently . GENERAL: The patient is well nourished, well hydrated in no acute distress. , The patient is oriented to time, place, and person. NECK: full range of motion Abdomen: soft, gravid, non tender. WET PREP: Not indicated IMPRESSION: 27yo @ 39 weeks for Repeat CS PLAN: Repeat cs at 39 weeks Pt has been counseled on risks/benefits and alternatives of surgery including but not limited to anesthesia, bleeding, infection, injury to pelvic structures including bowel, bladder, ureters and vessels. Pt wishes to proceed with surgery at this time. Risk of transfusion reviewed. Declines tubal. I have reviewed and updated past medical and surgical history, medications and allergies Radha Garcia MD
[2023-07-07] VITALS (16 sets, daily range): BP systolic 106–126; BP diastolic 60–94; PULSE 8–95; RESP 10–26; TEMP 35.8–36.7; O2SAT 97–100; BMI 32.9
[2023-07-07] MEDS: Lactated Ringers 1,000 ML 999 ML IV (10:06)
[2023-07-07 10:28] LABS: Absolute Lymphocyte Count 2.23 X10^3/uL (0.83-4.51); Absolute Neutrophil Count 6.5 X10^3/uL (2.0-7.7); Basophil# 0.03 X10^3/uL; Basophil% 0.3 % (0-1); Eosinophil# 0.15 X10^3/uL; Eosinophils% 1.6 % (0-5); Hemoglobin 12.1 g/dL (12.0-15.0); Lymphocyte # 2.23 X10^3/ul (0.83-4.51); Lymphocyte % 23.2 % (19-41); Mean Corp Hgb Conc 34.6 g/dL (32-36); Mean Corpuscular Hgb 31.6 pg (27.0-32.0); Mean Corpuscular Volume 91.4 fL (81-99); Mean Platelet Vol. 10.2 fl (6.2-12.0); Monocyte# 0.62 X10^3/uL; Monocyte% 6.5 % (0-10); NRBC Flagged by Analyzer 0 % (0-5); Neutrophil # 6.52 X10^3/uL (2.7-7.7); Neutrophil % 67.9 % (47-70); Platelet Count 188 K/mm3 (150-450); RBC Distribution Width CV 12.4 % (11.6-14.6); RBC Distribution Width SD 41.1 fl (35.1-43.9); Red Blood Count 3.83 M/mm3 (4.2-5.4); White Blood Count 9.6 K/mm3 (4.4-11.0)
[2023-07-07] MEDS: Acetaminophen 650 MG/20 ML UDC 1000 MG PO ×2 (11:05→17:54)
[2023-07-07 11:06] LABS: Syphilis Antibodies Non-reactive
[2023-07-07] MEDS: Sodium Citrate/Citric Acid 30 ML UDC PO (11:33)
[2023-07-07] MEDS: Cefazolin 2 GM in 0.9% Normal Saline (100mL Bag) 100 ML IV (12:07)
--- NOTE | 2023-07-07 12:58 | OP.PCM_ITS ---
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 She was then placed in the supine position. She was prepped and draped in the normal sterile fashion. Anesthesia was found to be adequate. At this time a Pfannenstiel skin incision was made with a knife was carried down to the underlying layer of the fascia. The fascial incision was then extended laterally using curved Alvarado scissor. Attention was then turned to the superior aspect of the fascial edge was grasped with 2 straight [place] clamps tented up and the rectus muscle dissected off sharply using curved Alvarado scissor. Attention was then turned to the inferior aspect where again Cassy clamps were placed in the rectus muscles were tented up and the fascia was dissected off sharply using the curved Alvarado scissor. Rectus muscles were grasped with allis and seperated with scalpel and then peritoneum entered bluntly. Metzenbaum used to take down rectus inferiorly. Gentle opposing traction was placed. At this time the vesicouterine peritoneum was identified. Mininal adhesions noted. Scalpel was used to make a uterine incision in a low transverse fashion. The uterus was then entered bluntly gentle opposing traction was placed to extend this incision. Membranes were ruptured light meconium noted. 's head was brought to the uterine incision was delivered atraumatically. delayed cord clamping performed. Cord was clamped and cut was handed to the waiting nursery team. The Placenta was removed from the uterus. The uterus remained in the abdominal cavity. The uterus was cleared of all clots and debris using a lap. At this time the uterine incision was reapproximated using #1 Vicryl in a running locked fashion. Hemostasis was appreciated. . Gutters were cleared of all clots and debris. Uterine incision was reevaluated and noted to be of excellent hemostasis. Hemoblast placed over uterine incision At this time the peritoneum and muscle were grasped with Kellys reapproximated using #2 Vicryl suture in a running fashion. hemoblast placed over rectus. Fascia was then reapproximated using #1 Vicryl in a running fashion. Subcu layer was irrigated and then reapproximated with #2 0 plain gut suture in an interrupted fashion. remaining hemoblast placed. Subcu layer was closed using 4-0 Monocryl in a subcu fashion. Dry sterile dressing was applied. Instrument lap needle count correct ?2. Anticipated normal postoperative course. Presentation: Positive for Vertex Amniotic Membrane Rupture Type: Artificial Amniotic Fluid Description: Lightly stained meconium Placental Delivery Description: Expressed Placenta Disposition: [facility] Cord Vessel Description: 3 Vessels Cord Entanglement: None A Gender: Female (1 minute): 8 (5 minute): 8 Delayed Cord Clamping: Yes Complications Risks of Surgery Discussed w/Patient: Bleeding, Anesthesia Risks, Infection, Need for Future C-Sections and Injury to surrounding structure(s) including bowel and bladder Complications: none
[2023-07-07] MEDS: Oxytocin 15 Units/NS 250ml 15 UNITS/250 ML IV.SOLN 83 UNITS IV (13:30)
[2023-07-07] MEDS: Ketorolac 30 MG/ML Syringe IV ×2 (13:32→18:46)
[2023-07-07] MEDS: 0.9% Saline Lock 10 ML Syringe IV (13:34)
[2023-07-07] MEDS: Lactated Ringers 1,000 ML 100 ML IV (16:28)
[2023-07-07] MEDS: SimETHICONE 80 MG Chewable Tablet PO (17:58)
[2023-07-08 00:12] VITALS: BP 129/62; PULSE 78; RESP 16; TEMP 36.6; O2SAT 99
[2023-07-08] MEDS: Acetaminophen 650 MG/20 ML UDC 1000 MG PO ×4 (00:43→18:34)
[2023-07-08] MEDS: Ketorolac 30 MG/ML Syringe IV ×2 (00:44→06:24)
[2023-07-08] MEDS: 0.9% Saline Lock 10 ML Syringe IV ×3 (00:44→18:39)
[2023-07-08] MEDS: Enoxaparin 40 MG/0.4 ML Syringe SC ×2 (04:26→21:59)
[2023-07-08 04:35] VITALS: BP 118/53; PULSE 94; RESP 16; TEMP 36.3; O2SAT 97
[2023-07-08 07:07] LABS: Hematocrit 27.7 % (37-47); Hemoglobin 9.5 g/dL (12.0-15.0); Mean Corp Hgb Conc 34.3 g/dL (32-36); Mean Corpuscular Hgb 32.3 pg (27.0-32.0); Mean Corpuscular Volume 94.2 fL (81-99); Mean Platelet Vol. 10.3 fl (6.2-12.0); Platelet Count 169 K/mm3 (150-450); RBC Distribution Width CV 12.6 % (11.6-14.6); RBC Distribution Width SD 43.2 fl (35.1-43.9); Red Blood Count 2.94 M/mm3 (4.2-5.4); White Blood Count 12.5 K/mm3 (4.4-11.0)
--- NOTE | 2023-07-08 08:07 | PN.OBGYN_ITS ---
Subjective Subjective Patient seen at bedside. infant. Difficulty voiding after catheter removed. Had to have bladder emptied this morning. Has not voiding on own since delivery. Pain is controlled. Lochia decreasing. Objective Data Objective Data Vital Signs: Vital Signs Temp Pulse Resp BP Pulse Ox O2 Del Method 97.3 F L 94 16 118/53 L 97 Room Air 07/08/23 04:35 07/08/23 04:35 07/08/23 04:35 07/08/23 04:35 07/08/23 04:35 07/08/23 04:35 Oxygen Delivery Method Room Air Weight: 180 lb Body Mass Index (BMI) 32.9 Intake & Output: Intake and Output for Last 24 Hours 07/06/23 07/07/23 07/08/23 23:59 23:59 23:59 Intake Total 1867.62 / 1867.62 Output Total 1100 / 1100 400 / 400 Balance 767.62 / 767.62 -400 / -400 Lab / Micro Data 07/08/23 06:50 Labs: Laboratory Results - last 24 hr 07/07/23 10:12: WBC 9.6, RBC 3.83 L, Hgb 12.1, Hct 35.0 L, MCV 91.4, MCH 31.6, MCHC 34.6, RDW Std Deviation 41.1, RDW Coeff of Melissa 12.4, Plt Count 188, MPV 10.2, Immature Gran % (Auto) 0.500, Neut % (Auto) 67.9, Lymph % (Auto) 23.2, Archuleta % (Auto) 6.5, Eos % (Auto) 1.6, Baso % (Auto) 0.3, Absolute Neuts (auto) 6.5, Absolute Lymphs (auto) 2.23, Nucleated RBC % 0, Syphilis Total Ab Non- reactive, Blood Type A POSITIVE, Antibody Screen NEGATIVE 07/08/23 06:50: WBC 12.5 H, RBC 2.94 L, Hgb 9.5 L, Hct 27.7 L, MCV 94.2, MCH 32.3 H, MCHC 34.3, RDW Std Deviation 43.2, RDW Coeff of Melissa 12.6, Plt Count 169, MPV 10.3 ROS Eyes Eyes: Denies blurry vision, change in vision or spots in vision ENT HEENT: Denies dizziness or headache(s) Cardiovascular Cardiovascular: Denies abdominal pain, chest pain or dyspnea Respiratory/Chest Respiratory/Chest: Denies cough, dyspnea, shortness of breath at rest or shortness of breath with exertion Gastrointestinal Gastrointestinal: Denies abdominal pain, diarrhea or vomiting Genitourinary Genitourinary: Reports other Details: Difficulty urinating since surgery Musculoskeletal Musculoskeletal: Reports none Integumentary Integumentary: Denies rash Neurologic Neurologic: Denies dizziness, headache(s), memory loss or weakness Physical Exam Narrative Dressing is dry and intact Const alert and no apparent distress General Appearance: cooperative and comfortable Exam Limitations: no limitations HEENT normocephalic Eyes General Eye: normal appearance of both eyes Neck full ROM General: normal visual inspection Chest Chest: symmetrical chest wall rise Resp normal respiratory effort and normal air movement Effort and Inspection: symmetric chest movement Auscultation: clear to auscultation bilaterally Cardio regular rate and regular rhythm GI normal to inspection, nondistended, normoactive bowel sounds Back/Spine normal ROM Extremity full ROM and no calf tenderness General Extremity: normal exam except as noted Skin no rashes or lesions noted Neuro CN's II-XII intact bilaterally Psych mental status grossly normal Assessment & Plan (1) Delivery by section: COMMENT: POD#2 (2) Acute urinary retention: (3) Care and examination of lactating mother: PLAN: Plan POD 2 Repeat C/S Pain control support Increase ambulation Urination
[2023-07-08 08:56] VITALS: BP 114/59; PULSE 79; RESP 16; TEMP 36.8; O2SAT 98
[2023-07-08] MEDS: Ibuprofen 100 MG/5 ML UDC 600 MG PO (12:05)
--- NOTE | 2023-07-08 14:23 | NURSING ---
Upon notifying patient of provider recommendation to place naranjo patient is agreeable. Family in room at this time. Patient requests to wait and will call when ready for placement. Encouraged to call if she feels the need to void or experiences pain or discomfort in lower abdomen. patient verbalizes understanding and agrees.
[2023-07-08 14:49] VITALS: BP 116/71; PULSE 82; RESP 16; TEMP 36.6; O2SAT 100
--- NOTE | 2023-07-08 17:41 | PCM.PN.CNM ---
Subjective Subjective Received call from nursing staff that patient is still unable to void on her own. She needed to be straight cathed x 2 today. She is ambulating without difficulty and tried to take a warm shower to help her relax. Objective Data Objective Data Vital Signs: Vital Signs Temp Pulse Resp BP Pulse Ox O2 Del Method 97.8 F 82 16 116/71 100 Room Air 07/08/23 14:49 07/08/23 14:49 07/08/23 14:49 07/08/23 14:49 07/08/23 14:49 07/08/23 14:49 Oxygen Delivery Method Room Air Weight: 180 lb Body Mass Index (BMI) 32.9 Intake & Output: Intake and Output for Last 24 Hours 07/06/23 07/07/23 07/08/23 23:59 23:59 23:59 Intake Total 1867.62 / 1867.62 Output Total 1100 / 1100 400 / 400 Balance 767.62 / 767.62 -400 / -400 Lab / Micro Data 07/08/23 06:50 Labs: Laboratory Results - last 24 hr 07/08/23 06:50: WBC 12.5 H, RBC 2.94 L, Hgb 9.5 L, Hct 27.7 L, MCV 94.2, MCH 32.3 H, MCHC 34.3, RDW Std Deviation 43.2, RDW Coeff of Melissa 12.6, Plt Count 169, MPV 10.3 Assessment & Plan (1) Care and examination of lactating mother: (2) Acute urinary retention: (3) Delivery by section: COMMENT: POD#2 PLAN: Plan Discussed above with Dr. Cohen- orders received to replace naranjo catheter throughout the night. Will reevaluate ability to void tomorrow.
[2023-07-08 20:31] VITALS: BP 125/79; PULSE 98; RESP 16; TEMP 36.5; O2SAT 97
[2023-07-09] MEDS: Ibuprofen 100 MG/5 ML UDC 600 MG PO ×3 (00:36→12:46)
[2023-07-09] MEDS: Acetaminophen 650 MG/20 ML UDC 1000 MG PO ×3 (00:38→12:44)
[2023-07-09 01:50] VITALS: BP 127/64; PULSE 97; RESP 16; TEMP 36.3; O2SAT 97
[2023-07-09] MEDS: 0.9% Saline Lock 10 ML Syringe IV (06:42)
[2023-07-09 08:07] VITALS: BP 91/77; PULSE 78; RESP 16; TEMP 36.2; O2SAT 99
--- NOTE | 2023-07-09 08:34 | PCM.PN.OB ---
Subjective Subjective Patient is doing well. She is ambulating without lightheadedness or dizziness. The Landry was replaced overnight. She stated yesterday she had the urge to void but was unable to void. Pain has been well-controlled. She is tolerating regular diet without nausea or vomiting. No chest pain or trouble breathing. Lochia is normal. She is breast-feeding without complaints. She desires to go home today if she is able to void. Objective Data Objective Data Vital Signs: Vital Signs Temp Pulse Resp BP Pulse Ox O2 Del Method 97.1 F L 78 16 91/77 99 Room Air 07/09/23 08:07 07/09/23 08:07 07/09/23 08:07 07/09/23 08:07 07/09/23 08:07 07/09/23 08:07 Oxygen Delivery Method Room Air Weight: 180 lb Body Mass Index (BMI) 32.9 Intake & Output: Intake and Output for Last 24 Hours 07/07/23 07/08/23 07/09/23 23:59 23:59 23:59 Intake Total 1867.62 / 1867.62 Output Total 1100 / 1100 400 / 400 600 / 600 Balance 767.62 / 767.62 -400 / -400 -600 / -600 Lab / Micro Data 07/08/23 06:50 Physical Exam Const alert and no apparent distress General Appearance: comfortable HEENT normocephalic Resp normal respiratory effort GI soft to palpation and non-distended GI Narrative: ATTP, dressing c/d/i, FF@U-3 Narrative: Scant blood on pad and no bleeding with fundal pressure Extremity no calf tenderness Extremity Narrative: 1+ pitting edema bilaterally Assessment & Plan (1) Delivery by section: PLAN: The patient is from a section. She is doing well. Breast-feeding. Will remove Landry catheter this morning and assess ability to void. If spontaneously voiding without difficulty okay to go home as she is meeting other milestones for discharge. Discharge instructions reviewed. To follow-up in the office in 1 week for an incision check. (2) Acute urinary retention: (3) Care and examination of lactating mother:
--- NOTE | 2023-07-09 08:40 | DCINST_ITS ---
Discharge Instructions Diet Discharge Diet: No restrictions Activity Discharge Activity: May Not Drive (until you feel strong enough to slam on a brake or turn a steering wheel sharply) and May Shower May resume sexual activity in: 6 weeks Ice area for (Minutes): 15 Weight Bearing Status: Weight bearing as tolerated Lifting Restrictions: nothing heavier than baby Dressing / Incision Call your doctor if your incision/area has: Continuous Slow Oozing, Sudden Increased Bleeding, Increased Pain/ Swelling, Increased Redness, Foul Smelling Discharge and Swelling at the incision site Call your doctor if you observe: Fever of 101 or Higher, Coldness, Increased Pain, Numbness or Tingling, Change in Color, Inability to urinate, Inability to have a bowel movement, Using more than 1 pad per hour, Shortness of breath, Dizziness, Fainting spells, Swelling in the ankles, Chest pain, Prolonged hiccupping, Increased palpitations (irregular heartbeat), Calf discomfort and Uncontrolled pain Suture Line Care: Avoid Pulling/Pushing and Avoid Pinching/Bending Remove Dressing in: 1 day Cleanse incision/area with: Soap & Water Follow Up Care Please Follow Up With: Radha Kirk MD When: 1 week for incision check 6 week exam Test Results: Test results from this visit will be discussed in further detail at your follow- up appointment, if applicable. Discharge Plan Admission Admit Date/Time: 07/07/23 09:46 Primary Reason for Your Visit: Delivery Attending Provider: Radha Kirk Primary Care Provider: Emre Muhammad Instructions Patient Instructions: After a Discharge Orders/Prescriptions Prescriptions: New ibuprofen 600 mg tablet 600 mg PO Q6H PRN (Reason: pain) Qty: 30 0RF docusate sodium [Colace] 100 mg capsule 100 mg PO BID Qty: 30 0RF Continued Prenatabs FA 1 TABLET tablet 1 tab PO DAILY sennosides-docusate sodium [Stool Softener-Stimulant Laxat] 8.6-50 mg Tablet 1 tab-cap PO DAILY Qty: 30 0RF ibuprofen 600 mg Tablet 600 mg PO Q6H Qty: 30 0RF Referrals / Follow Up: Emre Muhammad MD [Primary Care Provider] - Disposition Disposition (needs filled in before D/C Order can be placed): Home, Self Care
[2023-07-09 14:45] VITALS: BP 143/93; PULSE 77; RESP 18; TEMP 36.8; O2SAT 98
[2023-07-09 15:03] VITALS: BP 134/77
--- NOTE | 2023-07-09 15:34 | CASEMGMT ---
Social Work Assessment Labor and Delivery Unit Patient Address: [address] [id number] Phone number: [phone] Date of Referral: 07/08/23 Time of Referral:? 110 Referred By: Delilah Browne Date of Intervention: 07/09/23 ?? Time of Intervention:? 1040 Reason for Referral:? depression Sw completed chart review and acknowledges social work consult due to maternal mental health history of . Sw met with mother of baby (NILO Emerson) at bedside, introduced self and explained sw role during hospitalization. Sw completed psychosocial assessment. History obtained from: medical records, MOB Household composition: Currently residing in the family home is JOEY GONZALEZ, their three older children (Nestor- 7, Yolanda- 5, [place]- 2) and now baby when medically ready for discharge. LISA denies any concerns with housing. Patient's parent/guardian status:? LISA states that she and JOEY have been together for 12 years, they [facility]. MOB denies any reports of domestic violence or intimate partner violence. ? Medical History: ?LISA is 27 year old female who is 4, para 3- now 4 following labor and delivery of . LISA received routine care during with [facility]. LISA presented to hospital and delivered baby via repeat on 07/07/23 at 39 weeks gestation. Baby girl, named Kathryn Winter, was born weighing 7lb 11oz with apgars of 8 and 8 at one and five minutes of life, respectfully. LISA states that she is breast feeding and it is going well. Baby will be followed by Dr. Pruitt for pediatrics. Educational Status:? Both parents graduated from high school and attended some college, but no degree. Financial Status: JOEY is gainfully employed outside of the home in [employer]. 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 Supplies:?? Parents have obtained all necessary baby supplies, including: car seat, safe sleep space, clothes, diapers and wipes. Childcare/Caregiver(s):? LISA will be the primary caregiver to baby along with JOEY when he is not working. Transportation:??Both parents have their drivers license and reliable means of transportation. No barriers. Programs/Agencies Involved: ???LISA is connected to [employer] and [employer]. Children Services/Legal Issues:??? NO history of children services involvement, no issues or concerns warranting referral to be made at this time. Behavioral Health Issues: ??Mental Health History:??JOEY does not have mental health history. LISA has been diagnosed with anxiety, depression and did experience depression following the delivery of her first baby. LISA states that at that time it was a challenge for her to get acclimated to being a first time mom, she felt overwhelmed, anxious and on edge. LISA is not prescribed any medications to help with her mental health symptoms. ? Substance Use History:?LISA denies substance use prior to or during . ? Family History:??MOB denies family history of addiction/ substance use or significant mental health diagnoses. ??? Drug Screens: No drug screens observed in chart review. Family/Social Stressors:? LISA denies any concerns or stressors at this time. Support Systems: LISA states that her parents are her biggest supports. Depression/Shaken Baby/Safe Sleeping:? Sw educated LISA on signs and symptoms of baby blues and depression and anxiety. LISA completed an [place] Depression Scale, her score was 0. Sw provided education and support, and encouraged her to follow up with her OBGYN should she start to experience any mental health concerns during this period. MOB expressed understanding. Sw educated LISA on shaken baby prevention and ABCs of safe sleep. MOB expressed understanding. ASSESSMENT:? MOB and baby admitted following labor and delivery of . MOB made and maintained eye contact during completion of psychosocial assessment. LISA talked openly regarding her mental health during her period following the of her first baby. LISA states that if she were to struggle with her mental health FOB would be able to recognize that and he would know how to help and support her. LISA has natural supports in place and has obtained all necessary baby supplies. PLAN:? MOB and baby to be discharged when medically ready. ?No other services requested or indicated. Danielle Lgaos, LEADLIGHTER, BUILDING MANAGER
--- NOTE | 2023-07-09 16:50 | NURSING ---
Repeat BP 15 minutes after 143/93 was 134/77 at 1503 and pt asymptomatic. Kim. [place] chargeback analyst nurse relayed info to saima palmer who ordered pt to follow up for a BP check in the office on wednesday or wednesday but can be discharged.
== END 2023-07-09 16:45 | disposition home or self-care (01) | DRG 540 ==
PROVIDERS: Admitting Provider Obstetrics & Gynecology; PCP Family Medicine; Visit Provider Obstetrics & Gynecology
PROC: 10D00Z1 Extraction of Products of Conception, Low, Open Approach (ICD-10-PCS; CPT 59514; principal; 2023-07-07 11:45)
DX: O34.211 Maternal care for low transverse scar from previous cesarean delivery (principal); O77.0 Labor and delivery complicated by meconium in amniotic fluid; R33.9 Retention of urine, unspecified; Z37.0 Single live birth; Z3A.39 39 weeks gestation of pregnancy
CPT/HCPCS: 59025; 59050; 85025; 85027; 86780; 86850; 86900; 86901; 99221; J7120; A4216; G0378